=== PATIENT | female | born 1970 | race Two or more races ===

== ENCOUNTER 2023-03-27 10:10 | Day surgery (SDC) | payer OTHER ==
[~2023-03-27] VITALS: Ht 152.4 cm; Wt 68.0 kg
[2023-03-27] MEDS ORDERED: fentaNYL citrate 0.05 MG/ML VIAL ONE (12:43)
[2023-03-27] MEDS ORDERED: LIDOCAINE 2% 100 MG/5 ML UJET TP ONE (12:43)
== END 2023-03-27 14:00 | disposition home or self-care (01) ==
LOC: MMU 10:10 → MDS 10:10
PROVIDERS: ATTEND Internal Medicine Gastroenterology
DX: Z12.11 Encounter for screening for malignant neoplasm of colon (principal); K63.5 Polyp of colon; Z80.0 Family history of malignant neoplasm of digestive organs
CPT/HCPCS: 45385; J3010